=== PATIENT | male | born 2000 | race Caucasian/White ===

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

== ENCOUNTER 2019-01-04 13:22 | Emergency (ER) | payer BC ==
[2019-01-04 13:41] VITALS: BP 143/69
--- NOTE | 2019-01-04 14:19 | UC ---
Lower Extremity/Ankle HPI - HPI Summary HPI Summary: 18-year-old male comes in with chief complaint of left ankle pain. Patient woke up with the pain this morning. No known specific trauma. Pain is worse in the posterior aspect of the ankle. Patient replies that he has had similar pain a few years ago and it had to do with a bone spur and he was seen and treated with a cast and improved. Pain is worse with activity and range of motion of the ankle. Better with rest. - History of Current Complaint Chief Complaint: UCLowerExtremity Stated Complaint: LEFT ANKLE COMPLAINT Time Seen by Provider: 01/04/19 13:43 Pain Intensity: 7 - Allergies/Home Medications Allergies/Adverse Reactions: Allergies Allergy/AdvReac Type Severity Reaction Status Date / Time No Known Allergies Allergy Verified 01/04/19 13:41 PMH/Surg Hx/FS Hx/Imm Hx Previously Healthy: Yes - Surgical History Surgical History: Yes Surgery Procedure, Year, and Place: circumsion at age 15 for paraphimosis - Family History Known Family History: Positive: Hypertension - Social History Alcohol Use: Occasionally Substance Use Type: None Smoking Status (MU): Never Smoked Tobacco Have You Smoked in the Last Year: No - Immunization History Vaccination Up to Date: Yes Review of Systems All Other Systems Reviewed And Are Negative: Yes Constitutional: Positive: Negative Skin: Positive: Negative Eyes: Positive: Negative ENT: Positive: Negative Respiratory: Positive: Negative Cardiovascular: Positive: Negative Gastrointestinal: Positive: Negative Motor: Positive: Negative Neurovascular: Positive: Negative Musculoskeletal: Positive: Other: - SEE HPI Psychological: Positive: Negative Is Patient Immunocompromised?: No Physical Exam Triage Information Reviewed: Yes Appearance: Well-Appearing, No Pain Distress, Well-Nourished Vital Signs: Initial Vital Signs Temp 99 F 01/04/19 13:36 Pulse 90 01/04/19 13:36 Resp 16 01/04/19 13:36 BP 143/69 01/04/19 13:36 Pulse Ox 100 01/04/19 13:36 Vital Signs Reviewed: Yes Eye Exam: Normal Eyes: Positive: Conjunctiva Clear Neck: Positive: Supple Respiratory: Positive: No respiratory distress Musculoskeletal: Positive: Other: - Left ankle is tender to palpation just posterior to the malleoli. The Achilles tendon itself is nontender to palpation and intact. The foot is nontender normal capillary refill no sensation deficit. Ankle has full range of motion but it plantar flexion increases the pain the most. Neurological: Positive: Alert, Muscle Tone Normal Psychological: Positive: Age Appropriate Behavior Skin Exam: Normal Lower Extremity Course/Dx - Course Course Of Treatment: Patient Name: SHAUN GARLAND Medical Record#: [id number] Ordering Physician: Trav Fowler MD Acct.#: [id number] : 2000 Age: 18 Sex: M Location: [facility] Exam Date: 01/04/19 1343 ADM Status: REG ER Order Information: ANKLE LEFT 3+VWS Accession Number: [id number] CPT: 03284 INDICATION: Left ankle injury. TECHNIQUE: 3 views of the left ankle were obtained. FINDINGS: The bones are in normal alignment. No fracture is seen. Joint spaces appear maintained. IMPRESSION: NO EVIDENCE FOR FRACTURE. <Electronically signed by Gavin Higgins MD in [place]> 01/04/19 8342 I discussed the x-rays with the patient right now the plan is to have him follow -up with sports medicine. He'll be doing eyes anti-inflammatories reports he has an Nikko wrap that he can use at home. - Differential Dx/Diagnosis Provider Diagnosis: Left ankle pain Discharge - Sign-Out/Discharge Documenting (check all that apply): Patient Departure All imaging exams completed and their final reports reviewed: Yes - Discharge Plan Condition: Stable Disposition: HOME Patient Education Materials: Ankle Sprain (ED) Referrals: Joshua Sosa MD [Primary Care Provider] - Rossy Haro MD [Medical Doctor] - [facility] [Provider Group] Additional Instructions: FOLLOW UP WITH DR HARO, SPORTS MEDICINE. GET REEVALUATED SOONER IF WORSE OR ANY QUESTIONS OR CONCERNS. - Billing Disposition and Condition Condition: STABLE Disposition: Home
== END 2019-01-04 14:30 | disposition home or self-care (01) ==
LOC: UCCORT 13:22
DX: M25.572 Pain in left ankle and joints of left foot (principal)
CPT/HCPCS: 99211; G0463